=== PATIENT | male | born 1975 | race Caucasian/White ===

== ENCOUNTER 2018-05-12 18:41 | Emergency (ER) | payer OTHER, MEDICAID ==
[~2018-05-12] VITALS: Ht 177.8 cm; Wt 90.7 kg
[2018-05-12] MEDS ORDERED: NACL 0.9% 1,000 ML IV ONE (18:51)
[2018-05-12 18:53] VITALS: BP_SYST 136
[2018-05-12] MEDS ORDERED: NS 1000 ML IV.SOLN IV ONE (19:00)
[2018-05-12 19:55] LABS: BASOPHILS # (AUTO) 0.2 K/uL (0.0-0.2); EOSINOPHILS # (AUTO) 0.2 K/uL (0.0-0.4); EOSINOPHILS % (AUTO) 1.4 % (0.0-4.0); HEMATOCRIT 45.2 % (36-54); HEMOGLOBIN 14.6 g/dL (14.0-18.0); LYMPHOCYTES # (AUTO) 1.1 K/uL (1.0-5.5); LYMPHOCYTES % (AUTO) 9.2 % (20.5-51.5); MEAN CORPUSCULAR HEMOGLOBIN 29 pg (27-31); MEAN CORPUSCULAR HGB CONC 32 % (32-36); MEAN CORPUSCULAR VOLUME 91 fL (79.0-98.0); MONOCYTES # (AUTO) 0.8 K/uL (0.0-1.0); MONOCYTES % (AUTO) 6.7 % (1.7-9.3); NEUTROPHILS # (AUTO) 9.2 K/uL (1.8-7.7); NEUTROPHILS % (AUTO) 80.7 % (40.0-70.0); PLATELET COUNT (AUTO) 191 K/uL (130-430); RED BLOOD CELL COUNT(AUTO) 4.99 MIL/uL (4.2-6.2); RED CELL DISTRIBUTION WIDTH 14.4 % (9.0-15.0); WHITE BLOOD COUNT (AUTO) 11.5 K/uL (4.8-10.8)
[2018-05-12 20:06] LABS: ANION GAP 10 (5-15); CALCIUM 9.2 mg/dL (8.4-11.0); CHLORIDE 104 mmol/L (98-107); CREATININE 0.71 mg/dL (0.55-1.30); GLUCOSE 94 mg/dL (70-99); POTASSIUM 3.5 mmol/L (3.5-5.1); SODIUM SERUM 140 mmol/L (136-145); UREA NITROGEN, BLOOD 17 mg/dL (8-21)
[2018-05-12 20:08] LABS: GFR AFRICAN AMERICAN 155 mL/min (>90); INR 0.9 (0.80-1.20); PROTHROMBIN TIME 9.4 SECS (9.5-12.5)
[2018-05-12 20:12] LABS: ACETAMINOPHEN < 1 ug/mL (1-30); ALANINE AMINOTRANSFERASE 159 U/L (12-78); ALBUMIN 2.7 g/dL (3.4-4.8); ALCOHOL, BLOOD < 3 mg/dL (<10); AMYLASE 110 U/L (0-100); ASPARTATE AMINOTRANSFERASE 62 U/L (10-37); LIPASE 365 U/L (73-393); TOTAL BILIRUBIN 0.3 mg/dL (0.0-1.0)
[2018-05-13 01:45] VITALS: BP_SYST 128
== END 2018-05-13 01:21 | disposition home or self-care (01) ==
LOC: SED 18:41
DX: R06.02 Shortness of breath (principal); I10 Essential (primary) hypertension; Z88.1 Allergy status to other antibiotic agents; Z86.73 Personal history of transient ischemic attack (TIA), and cerebral infarction without residual deficits
CPT/HCPCS: 36415; 36600; 71045; 80053; 82150; 82550; 82803; 83605; 83690; 84484; 85025; 85610; 85730; 87040; 93005; 94002; 94640; 99284; G0480; G0482; J7030; 99285